=== PATIENT | male | born 2000 ===

== ENCOUNTER 2022-11-18 20:11 | Inpatient (IN) | payer BC ==
[~2022-11-18] VITALS: Ht 172.7 cm; Wt 73.4 kg
[2022-11-18] MEDS ORDERED: LORazepam 2 MG TABLET PO PRN (21:45)
[2022-11-18] MEDS ORDERED: HALOPERIDOL 5 MG TABLET PO PRN (21:45)
[2022-11-18] MEDS ORDERED: ZOLPIDEM TARTRATE 10 MG TABLET PO PRN (21:45)
[2022-11-18 21:46] LABS: BASOPHILS % (AUTO) 0.5 % (0.0-2.0); EOSINOPHILS % (AUTO) 0.2 % (1.0-6.0); HEMATOCRIT 43.9 % (41-53); HEMOGLOBIN 14.6 g/dL (13.5-17.5); LYMPHOCYTES # (AUTO) 1.7 K/uL (1.0-4.8); LYMPHOCYTES % (AUTO) 13.3 % (22.0-44.0); MEAN CORPUSCULAR HGB CONC 33.2 G/dL (31.0-37.0); MEAN CORPUSCULAR VOLUME 90 fL (80-100); MONOCYTES # (AUTO) 0.8 K/uL (0.1-1.0); MONOCYTES % (AUTO) 6.8 % (2.0-9.0); NEUTROPHILS # (AUTO) 9.8 K/uL (1.8-7.7); NEUTROPHILS % (AUTO) 79.2 % (40.0-70.0); PLATELET COUNT (AUTO) 268 K/uL (150-450); RED BLOOD CELL COUNT(AUTO) 4.87 MIL/uL (4.50-5.90); RED CELL DISTRIBUTION WIDTH 12.8 % (11.5-14.5)
[2022-11-18 21:55] LABS: ANION GAP 6 mmol/L (8-16); CALCIUM, TOTAL 9.2 mg/dL (8.8-10.5); CARBON DIOXIDE 28 mmol/L (22-29); CHLORIDE 102 mmol/L (98-107); GLOMERULAR FILTR. RATE CALC > 60 mL/min (>60); GLUCOSE,RANDOM 124 mg/dL (70-110); POTASSIUM 3.4 mmol/L (3.5-5.1); SODIUM SERUM 136 mmol/L (136-145)
[2022-11-18 22:00] LABS: ALANINE AMINOTRANSFERASE 34 U/L (12-78); ALBUMIN 4.5 g/dL (3.4-5.0); ALKALINE PHOSPHATASE 75 U/L (46-116); ASPARTATE AMINOTRANSFERASE 41 U/L (15-37); BILIRUBIN,TOTAL 1.6 mg/dL (0.1-1.0); TOTAL PROTEIN, SERUM 7.8 g/dL (6.4-8.2)
[2022-11-19 00:01] LABS: COVID AG,FIA SOURCE NASOPHARYNGEAL
[2022-11-19 05:01] VITALS: BP 145/81
[2022-11-19] MEDS: LevETIRAcetam 500 MG TABLET PO SCH ×2 (08:31→16:38)
[2022-11-19 09:01] VITALS: BP 140/90
[2022-11-19] MEDS ORDERED: LOPERAMIDE HCL 2 MG CAPSULE PO PRN (12:15)
[2022-11-19] MEDS ORDERED: PROMETHAZINE HCL 25 MG TABLET PO PRN (12:15)
[2022-11-19] MEDS ORDERED: MAGNESIUM HYDROXIDE SUSPENSION 30 ML UDCUP PO PRN (12:15)
[2022-11-19] MEDS ORDERED: HydrOXYzine PAMOATE 50 MG CAPSULE PO PRN (12:15)
[2022-11-19] MEDS ORDERED: GuaiFENesin/D-METHORPHAN [SUGAR-FREE] 200-20MG/10 ML SYRUP UDCUP PO PRN (12:15)
[2022-11-19] MEDS ORDERED: TUBERCULIN, PURIFIED PROTEIN DERIVATIVE 5 TU/0.1 ML SYRINGE ID ONE (12:15)
[2022-11-19] MEDS ORDERED: OLANZapine 5 MG RAPDIS TABLET PO PRN (12:15)
[2022-11-19] MEDS ORDERED: ACETAMINOPHEN 325 MG TABLET PO PRN (12:15)
[2022-11-19] MEDS ORDERED: MAG HYDROX/AL HYDROX/SIMETH ES 30 ML SUSPENSION UDCUP PO PRN (12:15)
[2022-11-19] MEDS: THIAMINE 100 MG TABLET PO SCH (16:38)
[2022-11-19 19:14] VITALS: BP 138/128
[2022-11-19 20:15] VITALS: BP 126/78
[2022-11-19] MEDS: OLANZapine 5 MG RAPDIS TABLET PO SCH (20:32)
[2022-11-19] MEDS: DIVALPROEX SODIUM 500 MG ER TABLET PO SCH (20:32)
[2022-11-19] MEDS: MELATONIN 5 MG TABLET PO SCH (20:32)
[2022-11-20 08:16] LABS: ALANINE AMINOTRANSFERASE 16 U/L (12-78); ALBUMIN 3.7 g/dL (3.4-5.0); ALKALINE PHOSPHATASE 64 U/L (46-116); ANION GAP 3 mmol/L (8-16); ASPARTATE AMINOTRANSFERASE 24 U/L (15-37); BILIRUBIN,TOTAL 1.7 mg/dL (0.1-1.0); CALCIUM, TOTAL 8.9 mg/dL (8.8-10.5); CARBON DIOXIDE 32 mmol/L (22-29); CHLORIDE 106 mmol/L (98-107); CHOL/HDL RATIO 2.8 (4.2-7.3); CHOLESTEROL 101 mg/dL (131-200); CREATININE 1.33 mg/dL (0.60-1.30); FREE T4 (FREE THYROXINE) 1.46 ng/dL (0.76-1.46); GLOMERULAR FILTR. RATE CALC > 60 mL/min (>60); GLUCOSE,RANDOM 94 mg/dL (70-110); HDL CHOLESTEROL 36 mg/dL (40-60); LDL CHOL (CALC.) 53 mg/dL (0-130); POTASSIUM 3.8 mmol/L (3.5-5.1); SODIUM SERUM 141 mmol/L (136-145); THYROID STIMULATING HORMONE 1.03 uIU/mL (0.36-3.74); TOTAL PROTEIN, SERUM 6.8 g/dL (6.4-8.2); TRIGLYCERIDES 61 mg/dL (15-150)
[2022-11-20 08:22] LABS: HEMOGLOBIN A1C 5.1 % (3.8-5.6)
[2022-11-20] MEDS: OMEGA-3/DHA/EPA/FISH OIL 1,000 MG CAPSULE PO SCH ×3 (08:43→09:48)
[2022-11-20] MEDS: FOLIC ACID 1 MG TABLET PO SCH ×3 (08:43→09:45)
[2022-11-20] MEDS: THIAMINE 100 MG TABLET PO SCH ×4 (08:44→17:15)
[2022-11-20] MEDS: NALTREXONE HCL 50 MG TABLET PO SCH ×3 (08:44→09:44)
[2022-11-20] MEDS: LevETIRAcetam 500 MG TABLET PO SCH ×4 (08:44→17:14)
[2022-11-20] MEDS: MULTIVITAMINS WITH MINERALS, THERAPEUTIC TABLET PO SCH ×2 (08:44→09:40)
[2022-11-20 08:45] VITALS: BP 123/60
[2022-11-20] MEDS ORDERED: OLAN5TAB94 PO (14:55)
[2022-11-20] MEDS ORDERED: NALT50TA PO (14:55)
[2022-11-20] MEDS ORDERED: OMEG-135 PO (14:55)
[2022-11-20] MEDS ORDERED: LEVE500T8 PO (14:55)
[2022-11-20] MEDS ORDERED: MELA5TAB40 PO (14:55)
[2022-11-20] MEDS ORDERED: DIVA500T69 PO (14:55)
[2022-11-20 20:27] VITALS: BP 121/74
[2022-11-20] MEDS: MELATONIN 5 MG TABLET PO SCH (20:56)
[2022-11-20] MEDS: OLANZapine 5 MG RAPDIS TABLET PO SCH (20:56)
[2022-11-20] MEDS: DIVALPROEX SODIUM 500 MG ER TABLET PO SCH (20:56)
[2022-11-21 08:36] VITALS: BP 114/63
[2022-11-21] MEDS: OMEGA-3/DHA/EPA/FISH OIL 1,000 MG CAPSULE PO SCH (09:00)
[2022-11-21] MEDS: MULTIVITAMINS WITH MINERALS, THERAPEUTIC TABLET PO SCH (09:00)
[2022-11-21] MEDS: NALTREXONE HCL 50 MG TABLET PO SCH (10:05)
[2022-11-21] MEDS: THIAMINE 100 MG TABLET PO SCH (10:06)
[2022-11-21] MEDS: FOLIC ACID 1 MG TABLET PO SCH (10:06)
[2022-11-21] MEDS: LevETIRAcetam 500 MG TABLET PO SCH (10:06)
== END 2022-11-21 11:15 | disposition home or self-care (01) | DRG 885 ==
LOC: EMS 20:15 → B2S 11-19 00:56
PROVIDERS: ADMIT Psychiatry & Neurology Psychiatry; ATTEND Psychiatry & Neurology Psychiatry
DX: F29 Unspecified psychosis not due to a substance or known physiological condition (principal); R45.851 Suicidal ideations; D72.829 Elevated white blood cell count, unspecified; Z20.822 Contact with and (suspected) exposure to COVID-19; E87.6 Hypokalemia; Z60.9 Problem related to social environment, unspecified; F20.9 Schizophrenia, unspecified; Z55.9 Problems related to education and literacy, unspecified; Z59.9 Problem related to housing and economic circumstances, unspecified; Z63.9 Problem related to primary support group, unspecified; Z65.3 Problems related to other legal circumstances; Z56.0 Unemployment, unspecified; Z79.899 Other long term (current) drug therapy
CPT/HCPCS: 80053; 80061; 80164; 83036; 84439; 84443; 85025; 86592; 99285; G0480; Q9967